=== PATIENT | female | born 1945 | race Caucasian/White ===

== ENCOUNTER 2017-06-02 14:14 | Emergency (ER) | payer OTHER ==
[2017-06-02 14:25] VITALS: BMI 27.1
[2017-06-02] MEDS ORDERED: ONDANSETRON 4 MG/2 ML VIAL IVPUSH ONE (16:11)
[2017-06-02] MEDS ORDERED: SODIUM CHLORIDE 0.9% 1000 ML INFUS.BAG IV ONE (16:12)
[2017-06-02] MEDS ORDERED: morphine CARPU-JECT 4 MG/1 ML DISP.SYRIN IVPUSH ONE (16:12)
[2017-06-02] MEDS ORDERED: ONDANSETRON 4 MG/2 ML VIAL ONE (16:29)
[2017-06-02] MEDS ORDERED: morphine CARPU-JECT 2 MG/1 ML DISP.SYRIN ONE (16:29)
[2017-06-02 16:32] LABS: BASOPHIL 0.7 % (0-2.0); MCHC 34.1 g/dl (32.0-36.0); MEAN CELL VOLUME 82.2 fl (80-96); NEUTROPHILS 66.7 % (42.8-82.8); PLATELET COUNT 224 K/MM3 (134-434); RDW 13.6 % (11.6-15.6); WHITE BLOOD COUNT 9.7 K/mm3 (4.0-10.0)
--- NOTE | 2017-06-02 16:33 | PDOC ---
History of Present Illness - General History Source: Patient Exam Limitations: No Limitations <Yesenia Chakraborty - Last Filed: 06/02/17 16:28> - General History Source: Patient, Family (Son) Exam Limitations: No Limitations - History of Present Illness Initial Comments: 06/02/17 16:34 The patient is a 72 year old female, with a significant past medical history of DM, GERD, Pancreatitis, HTN, HLD, Asthma who presents to the emergency department for epigastric abdominal pain. Patient states her pain is associated with nausea and vomiting. Patient report multiple episodes of vomiting ( nonbilious, nonbloody) this afternoon. Patient also reports L arm tingling but no numbness or weakness. Patient states her pain is similar when she had her cholecystectomy. She denies chest pain, headache or dizziness. She denies fever, chills, diarrhea or constipation. She denies dysuria, frequency, urgency or hematuria. Allergies: NKA Past surgical history: Cholecystectomy, Hysterectomy Social history: None PCP: Dr. Arciniega <Nida Pickering - Last Filed: 06/02/17 16:36> - General Chief Complaint: Pain Stated Complaint: PAIN, LT ARM, ABD Past History - Past Medical History Anemia: No Asthma: No Cancer: No Cardiac Disorders: No CVA: No COPD: No CHF: No Dementia: No Diabetes: Yes GI Disorders: Yes (ACID REFLUX,PANCREATITIS) Disorders: Yes (STRESS INCONTINENCE) HTN: Yes Hypercholesterolemia: Yes Liver Disease: No Seizures: No Thyroid Disease: No - Surgical History Abdominal Surgery: No Appendectomy: (') Cardiac Surgery: No Cholecystectomy: Yes ('99) Lung Surgery: No Neurologic Surgery: No Orthopedic Surgery: No - Psycho/Social/Smoking Cessation Hx Suicidal Ideation: No Smoking History: Never smoked Information on smoking cessation initiated: No Hx Alcohol Use: No Drug/Substance Use Hx: No Hx Substance Use Treatment: No <Yesenia Chakraborty - Last Filed: 06/02/17 16:28> <Nida Pickering - Last Filed: 06/02/17 16:36> - Past Medical History Allergies/Adverse Reactions: Allergies Allergy/AdvReac Type Severity Reaction Status Date / Time No Known Allergies Allergy Verified 06/02/17 14:25 Home Medications: Ambulatory Orders AmLODIPine 10/BENAZEPRIL 20 1 PO DAILY #0 10/17/11 Aspirin [Aspirin EC] 1 mg PO DAILY #0 tablet. 10/17/11 Calcium 500 PO DAILY #0 10/17/11 Humolog 5 SQ PRN #0 10/17/11 Hydrocodone Bit/Acetaminophen [Vicodin Es 7.5-750 mg Tablet] 1 each PO Q4HWA # 10 tablet 10/17/11 Insulin Glargine,Hum.rec.anlog [Lantus] 40 unit SQ DAILY #0 ml 10/17/11 Losartan Potassium [Cozaar] 100 mg PO DAILY #0 tablet 10/17/11 Metformin HCl [Glucophage] 1,000 mg PO BID #0 tablet 10/17/11 Multivitamin [Fruity Chews] 1 each PO DAILY #0 tab.chew 10/17/11 Omeprazole [Prilosec] 1 mg PO DAILY #0 capsule. 10/17/11 Vitamin D3 1 PO #0 10/17/11 Acetaminophen [Tylenol] 650 mg PO Q4H PRN #20 tablet 09/06/16 Mag Hydrox/Al Hydrox/Simeth [Mylanta Suspension -] 30 ml PO Q6H PRN #1 bottle Ranitidine HCl [Zantac] 150 mg PO BID PRN #20 tablet 09/06/16 Review of Systems - Review of Systems Able to Perform ROS?: Yes Comments:: 06/02/17 16:34 GENERAL/CONSTITUTIONAL: No fever or chills. No weakness. HEAD, EYES, EARS, NOSE AND THROAT: No change in vision. No ear pain or discharge. No sore throat. GASTROINTESTINAL: + nausea, vomiting. No diarrhea or constipation. GENITOURINARY: No dysuria, frequency, or change in urination. CARDIOVASCULAR: No chest pain or shortness of breath. RESPIRATORY: No cough, wheezing, or hemoptysis. MUSCULOSKELETAL: No joint or muscle swelling or pain. No neck or back pain. SKIN: No rash NEUROLOGIC: No headache, vertigo, loss of consciousness, or change in strength/ sensation. ENDOCRINE: No increased thirst. No abnormal weight change. HEMATOLOGIC/LYMPHATIC: No anemia, easy bleeding, or history of blood clots. ALLERGIC/IMMUNOLOGIC: No hives or skin allergy. <Nida Pickering - Last Filed: 06/02/17 16:36> *Physical Exam - Vital Signs Last Vital Signs Temp Pulse Resp BP Pulse Ox 97.5 F L 79 18 145/103 100 06/02/17 14:18 06/02/17 14:18 06/02/17 14:18 06/02/17 14:18 06/02/17 14:18 <Yesenia Chakraborty - Last Filed: 06/02/17 16:28> - Vital Signs Last Vital Signs Temp Pulse Resp BP Pulse Ox 97.5 F L 79 18 145/103 100 06/02/17 14:18 06/02/17 14:18 06/02/17 14:18 06/02/17 14:18 06/02/17 14:18 - Physical Exam Comments: 06/02/17 16:34 GENERAL: Awake, alert, and fully oriented, in no acute distress HEAD: No signs of trauma EYES: PERRLA, EOMI, sclera anicteric, conjunctiva clear ENT: Auricles normal inspection, nares patent, Moist mucosa NECK: Normal ROM, supple, no lymphadenopathy, JVD, or masses LUNGS: Breath sounds equal, clear to auscultation bilaterally. No wheezes, and no crackles HEART: Regular rate and rhythm, normal S1 and S2, no murmurs, rubs or gallops ABDOMEN: +epigastric tenderness, no rebound, no guarding. Soft, nontender, normoactive bowel sounds. No masses EXTREMITIES: Normal range of motion, no edema. No clubbing or cyanosis. No cords, erythema, or tenderness NEUROLOGICAL: Normal speech SKIN: Warm, Dry, normal turgor, no rashes or lesions noted. <Nida Pickering - Last Filed: 06/02/17 16:36> ED Treatment Course - RADIOLOGY Radiology Studies Ordered: Category Date Time Status ABDOMEN & PELVIS CT W/O CONTR [CT] Stat CT Scan 06/02/17 16:11 Ordered <Yesenia Chakraborty - Last Filed: 06/02/17 16:28> - LABORATORY CBC & Chemistry Diagram: 06/02/17 16:10 06/02/17 16:10 <Nida Pickering - Last Filed: 06/02/17 16:36> Medical Decision Making - Medical Decision Making 06/02/17 16:28 72 yo F with h/o cholecystecomy 99, with recently cbd stone x 2 in last year, here wtih c/o epigastric pain na/v x one. started early am. no f/c no urinary sxs. no cough no chest pain. does have left arm tingling. no change to stool . no urinar complaints. pain epigastric no radiation. no mod factors. feels similar to prior stones. on exam awake alert lungs clear bilat, heart rrr no mrg. abd soft mild epigastric ttp. no rebound no guarding. plan ct a/p labs will d/w dr marshall and dr. chandler. <Yesenia Chakraborty - Last Filed: 06/02/17 16:28> *DC/Admit/Observation/Transfer <Yesenia Chakraborty - Last Filed: 06/02/17 16:28> - Attestations Scribe Attestion: 06/02/17 16:34 Documentation prepared by Nida Pickering, acting as medical intern for Yesenia Chakraborty MD <Nida Pickering - Last Filed: 06/02/17 16:36> - Referrals Referrals: Prosper Arciniega MD [Primary Care Provider] -
[2017-06-02 18:18] LABS: ALBUMIN 3.2 g/dl (3.4-5.0); ALK PHOS 81 U/L (45-117); ANION GAP 11 (8-16); BILIRUBIN,TOTAL 0.3 mg/dL (0.2-1.0); CALCIUM 9.1 mg/dL (8.5-10.1); CO2 26 mmol/L (21-32); GLUCOSE,RANDOM 261 mg/dL (74-106); SGOT/AST 15 U/L (15-37); SGPT/ALT 23 U/L (12-78); TOT PROT 6.9 g/dl (6.4-8.2)
[2017-06-02 18:31] VITALS: BP 171/73; PULSE 72; TEMP 98.5
[2017-06-02 18:57] LABS: PH,URINE 6.5 (5.0-8.0); URINE APPEARANCE CLEAR; URINE BILIRUBIN NEGATIVE (NEGATIVE); URINE BLOOD TRACE-LYSE (NEGATIVE); URINE COLOR LT. YELLOW; URINE GLUCOSE (UA) 1+ (NEGATIVE); URINE KETONE NEGATIVE (NEGATIVE); URINE NITRITE NEGATIVE (NEGATIVE); URINE UROBILINOGEN 0.2 mg/dL (0.2-1.0)
[2017-06-02 18:58] LABS: URINE PROTEIN 1+ (NEGATIVE)
[2017-06-02 19:14] LABS: URINE RBC <1 /hpf (0-3); URINE WBC <1 /hpf (3-5)
--- NOTE | 2017-06-02 21:22 | PDOC ---
*Physical Exam - Vital Signs Last Vital Signs Temp Pulse Resp BP Pulse Ox 98.5 F 72 18 171/73 98 06/02/17 18:30 06/02/17 18:30 06/02/17 18:30 06/02/17 18:30 06/02/17 18:30 ED Treatment Course - LABORATORY CBC & Chemistry Diagram: 06/02/17 16:10 06/02/17 16:10 - ADDITIONAL ORDERS Additional order review: Laboratory Results 06/02/17 06/02/17 17:40 16:10 Sodium 133 L Potassium 3.4 L Chloride 96 L Carbon Dioxide 26 Anion Gap 11 BUN 8 D Creatinine 1.0 Creat Clearance w eGFR 54.50 Random Glucose 261 H D Calcium 9.1 Total Bilirubin 0.3 D AST 15 ALT 23 D Alkaline Phosphatase 81 Total Protein 6.9 Albumin 3.2 L Lipase 279 Urine Color Lt. yellow Urine Appearance Clear Urine pH 6.5 Urine Protein 1+ H Urine Glucose (UA) 1+ H Urine Ketones Negative Urine Blood Trace-lyse Urine Nitrite Negative Urine Bilirubin Negative Urine Urobilinogen 0.2 Urine RBC <1 Urine WBC <1 Ur Epithelial Cells Rare 06/02/17 16:10 RBC 3.81 MCV 82.2 MCHC 34.1 RDW 13.6 MPV 9.0 Neutrophils % 66.7 D Lymphocytes % 18.0 D Monocytes % 9.6 Eosinophils % 5.0 H Basophils % 0.7 - Medications Given in the ED: ED Medications Discontinued Medications Generic Name Dose Route Start Last Admin Trade Name Freq PRN Reason Stop Dose Admin Morphine Sulfate 4 mg 06/02/17 16:12 06/02/17 16:37 Morphine Injection - IVPUSH 06/02/17 16:13 4 mg ONCE ONE Administration Ondansetron HCl 4 mg 06/02/17 16:11 06/02/17 16:37 Zofran Injection IVPUSH 06/02/17 16:12 4 mg ONCE ONE Administration Sodium Chloride 1,000 ml 06/02/17 16:12 06/02/17 16:37 Normal Saline - IV 06/02/17 16:13 1,000 ml ONCE ONE Administration Medical Decision Making - Medical Decision Making 06/02/17 21:20 -Patient's symptoms resolved. - CAT scan of the abdomen and pelvis did not show any acute pathology. CAT scan did show interval development of 1.3 cm subcapsular cysts on a hepatic lobe.HOWEVER no acute pathology noted -the common Bile duct slightly dilated 1 cm but there was no stone in the common bile duct The lab findings and the CAT scan results were discussed with her, Dr. Sullivan and he agreed that she was stable to be discharged home I will send Isabelle to her pharmacy *DC/Admit/Observation/Transfer Diagnosis at time of Disposition: Epigastric pain Nausea and vomiting Qualifiers: Vomiting type: unspecified Vomiting Intractability: non-intractable Qualified Code(s): R11.2 - Nausea with vomiting, unspecified - Discharge Dispostion Disposition: HOME Condition at time of disposition: Stable - Referrals Referrals: Prosper Arciniega MD [Primary Care Provider] - - Patient Instructions Printed Discharge Instructions: DI for Epigastric Pain, DI for Vomiting -- Adult Additional Instructions: Please follow-up with Dr. Sullivan Return for any worsening symptoms - Post Discharge Activity
== END 2017-06-02 21:42 | disposition home or self-care (01) ==
LOC: JER 14:14
PROC: 3E033NZ Introduction of Analgesics, Hypnotics, Sedatives into Peripheral Vein, Percutaneous Approach (ICD-10-PCS; principal; 2017-06-02)
PROC: 3E033GC Introduction of Other Therapeutic Substance into Peripheral Vein, Percutaneous Approach (ICD-10-PCS; 2017-06-02)
DX: R10.13 Epigastric pain (principal); R11.2 Nausea with vomiting, unspecified; I10 Essential (primary) hypertension; Z79.4 Long term (current) use of insulin; Z79.84 Long term (current) use of oral hypoglycemic drugs; K21.9 Gastro-esophageal reflux disease without esophagitis; J45.909 Unspecified asthma, uncomplicated; K86.1 Other chronic pancreatitis
CPT/HCPCS: 36415; 74176-TC; 80053; 81003; 81015; 83690; 85025; 96374; 96375; 99284-25

== ENCOUNTER 2018-02-04 06:21 | Day surgery (SDC) | payer OTHER ==
[2018-02-02 16:57] VITALS: BMI 28.9
[~2018-02-04 06:21] MED LIST: ACETAMINOPHEN 325 MG TABLET (FP) PO PRN; EPINEPHrine/PF 1 MG/1 ML (1:1,000) AMPULE IVPUSH ONE; LIDOCAINE HCL 1% PRESERVATIVE FREE - 30ML VIAL IO ONE; TETRACAINE 0.5% OPHTH SOLN 2 ML BOTTLE TP ONE
[2018-02-04] MEDS ORDERED: TROPICAMIDE 1% OPHTH SOLN 15 ML BOTTLE ONE (06:30)
[2018-02-04] MEDS ORDERED: PHENYLEPHRINE 2.5% OPHTH SOLN 15 ML BOTTLE ONE (06:30)
[2018-02-04] MEDS ORDERED: CIPROFLOXACIN 0.3% EYE DROPS 5 ML BOTTLE ONE (06:30)
[2018-02-04] MEDS ORDERED: CYCLOPENTOLATE HCL 1% OPHTH SOLN 2 ML BOTTLE ONE (06:30)
[2018-02-04] MEDS ORDERED: FLURBIPROFEN 0.03% OPHTH SOLN 2.5 ML BOTTLE ONE (06:30)
[2018-02-04] MEDS: CYCLOPENTOLATE HCL 1% OPHTH SOLN 2 ML BOTTLE OP SCH ×2 (06:45→06:50)
[2018-02-04] MEDS: TROPICAMIDE 1% OPHTH SOLN 15 ML BOTTLE OP SCH ×2 (06:45→06:49)
[2018-02-04] MEDS: CIPROFLOXACIN HCL 0.3% OPHTH 2.5ML BOTTLE OP SCH ×2 (06:45→06:51)
[2018-02-04] MEDS: PHENYLEPHRINE 2.5% OPHTH SOLN 15 ML BOTTLE OP SCH ×2 (06:45→06:50)
[2018-02-04] MEDS: FLURBIPROFEN 0.03% OPHTH SOLN 2.5 ML BOTTLE OP SCH ×2 (06:45→06:50)
[2018-02-04 07:00] VITALS: TEMP 97.5
[2018-02-04] MEDS ORDERED: CHONDROITIN SU A/HYALUR SOD 1 KIT ONE (07:05)
[2018-02-04] MEDS ORDERED: TETRACAINE 0.5% OPHTH SOLN 2 ML BOTTLE ONE (07:15)
[2018-02-04] MEDS ORDERED: VANCOMYCIN 500 MG VIAL (RESTRICTED TO ID ONLY) ONE (07:15)
[2018-02-04] MEDS ORDERED: EPINEPHrine/PF 1 MG/1 ML (1:1,000) AMPULE ONE (07:15)
[2018-02-04] MEDS ORDERED: WATER FOR INJ,STERILE 10 ML ONE (07:15)
[2018-02-04] MEDS ORDERED: POVIDONE-IODINE 5% OPHTHALMIC PREP 30 ML SOLUTION ONE (07:15)
[2018-02-04] MEDS ORDERED: BSS (NA/CA/MG/K) BALANCED SALT SOLUTION OPHTH SOLN 15 ML BOTTLE ONE (07:15)
[2018-02-04] MEDS ORDERED: TRYPAN BLUE 0.5 ML DISP.SYRIN ONE (07:19)
[2018-02-04] MEDS ORDERED: LIDOCAINE HCL/PF 1% SDV 5ML VIAL ONE (07:19)
[2018-02-04] MEDS ORDERED: MIDAZOLAM HCL 2 MG/2 ML SINGLE DOSE VIAL ONE (07:56)
[2018-02-04] MEDS ORDERED: TETRACAINE 0.5% OPHTH SOLN 2 ML BOTTLE TP ONE (08:02)
[2018-02-04] MEDS ORDERED: LIDOCAINE HCL 1% PRESERVATIVE FREE - 30ML VIAL IO ONE (08:17)
[2018-02-04] MEDS ORDERED: EPINEPHrine/PF 1 MG/1 ML (1:1,000) AMPULE IVPUSH ONE (08:22)
[2018-02-04 09:10] VITALS: PULSE 70
--- NOTE | 2018-02-04 09:26 | SPEC ---
DATE OF OPERATION: 02/04/2018 PREOPERATIVE DIAGNOSIS: Cataract, right eye. POSTOPERATIVE DIAGNOSIS: Cataract, right eye. PROCEDURE: Phacoemulsification of right cataract with posterior chamber intraocular lens implantation. Lens used [id number], 22.5 diopter power, serial No. [id number]. SURGEON: Krishna Hardin M.D. ANESTHESIA: Topical MAC. COMPLICATIONS: None. DESCRIPTION OF PROCEDURE: The patient was brought to the operating room and correctly identified along with the operative site and the correct intraocular lens valverde. The patient was then prepped and draped in the usual sterile fashion including 5% Betadine solution in the conjunctival sac and an eyelid drape. An eyelid speculum was then placed in the eye. A paracentesis port was created and approximately 0.5 mL of preservative free Lidocaine was then injected into the eye. Viscoelastic was then injected to inflate the anterior chamber. A temporal clear corneal wound was created. A continuous circular capsulorrhexis was performed. The nucleus was then hydrodissected with BSS and removed with phacoemulsification. The remaining cortical material was irrigated and aspirated. Viscoelastic was injected to inflate the capsular bag and the intraocular lens was then implanted into the capsular bag. The remaining Viscoelastic was irrigated and aspirated from the eye. The IOL was noted to be well centered and completely covered by the anterior capsulorrhexis. Topical vancomycin was placed and the eye patched and shielded. All wounds were tested and found to be watertight. No suture was placed. The eye was then shielded. The patient was then discharged from the operating room in stable condition. KRISHNA HARDIN M.D. [id number]
[2018-02-04 09:46] VITALS: BP 130/65
== END 2018-02-04 09:30 | disposition home or self-care (01) ==
LOC: JASU-SURG 06:21
PROVIDERS: ATTEND Ophthalmology
PROC: 08RJ3JZ Replacement of Right Lens with Synthetic Substitute, Percutaneous Approach (ICD-10-PCS; principal; 2018-02-04 08:00)
DX: H26.9 Unspecified cataract (principal); I10 Essential (primary) hypertension; E11.9 Type 2 diabetes mellitus without complications; K21.9 Gastro-esophageal reflux disease without esophagitis; J45.909 Unspecified asthma, uncomplicated; Z79.84 Long term (current) use of oral hypoglycemic drugs
CPT/HCPCS: 82962

== ENCOUNTER 2018-02-18 06:04 | Day surgery (SDC) | payer OTHER ==
[2018-02-13 09:26] VITALS: BMI 28.9
[~2018-02-18 06:04] MED LIST changes: +CHONDROITIN SU A/HYALUR SOD 1 KIT IO ONE; +EPINEPHrine/PF 1 MG/1 ML (1:1,000) AMPULE IV ONE; -EPINEPHrine/PF 1 MG/1 ML (1:1,000) AMPULE IVPUSH ONE
[2018-02-18] MEDS ORDERED: CYCLOPENTOLATE HCL 1% OPHTH SOLN 2 ML BOTTLE ONE (06:12)
[2018-02-18] MEDS ORDERED: FLURBIPROFEN 0.03% OPHTH SOLN 2.5 ML BOTTLE ONE (06:13)
[2018-02-18] MEDS ORDERED: CIPROFLOXACIN 0.3% EYE DROPS 5 ML BOTTLE ONE (06:13)
[2018-02-18] MEDS ORDERED: PHENYLEPHRINE 2.5% OPHTH SOLN 15 ML BOTTLE ONE (06:13)
[2018-02-18] MEDS ORDERED: TROPICAMIDE 1% OPHTH SOLN 15 ML BOTTLE ONE (06:13)
[2018-02-18 06:31] VITALS: TEMP 97.8
[2018-02-18] MEDS: FLURBIPROFEN 0.03% OPHTH SOLN 2.5 ML BOTTLE OP SCH ×3 (06:55→07:13)
[2018-02-18] MEDS: CYCLOPENTOLATE HCL 1% OPHTH SOLN 2 ML BOTTLE OP SCH ×3 (06:55→07:13)
[2018-02-18] MEDS: PHENYLEPHRINE 2.5% OPHTH SOLN 15 ML BOTTLE OP SCH ×3 (06:55→07:13)
[2018-02-18] MEDS: TROPICAMIDE 1% OPHTH SOLN 15 ML BOTTLE OP SCH ×3 (06:55→07:13)
[2018-02-18] MEDS: CIPROFLOXACIN HCL 0.3% OPHTH 2.5ML BOTTLE OP SCH ×3 (06:55→07:13)
[2018-02-18] MEDS ORDERED: CHONDROITIN SU A/HYALUR SOD 1 KIT ONE (07:03)
[2018-02-18] MEDS ORDERED: LIDOCAINE HCL/PF 1% SDV 5ML VIAL ONE (07:19)
[2018-02-18] MEDS ORDERED: BSS (NA/CA/MG/K) BALANCED SALT SOLUTION OPHTH SOLN 15 ML BOTTLE ONE (07:19)
[2018-02-18] MEDS ORDERED: EPINEPHrine/PF 1 MG/1 ML (1:1,000) AMPULE ONE (07:19)
[2018-02-18] MEDS ORDERED: VANCOMYCIN 500 MG VIAL (RESTRICTED TO ID ONLY) ONE (07:19)
[2018-02-18] MEDS ORDERED: TETRACAINE 0.5% OPHTH SOLN 2 ML BOTTLE ONE (07:19)
[2018-02-18] MEDS ORDERED: WATER FOR INJ,STERILE 10 ML ONE (07:20)
[2018-02-18] MEDS ORDERED: POVIDONE-IODINE 5% OPHTHALMIC PREP 30 ML SOLUTION ONE (07:20)
[2018-02-18] MEDS ORDERED: MIDAZOLAM HCL 2 MG/2 ML SINGLE DOSE VIAL ONE (07:41)
[2018-02-18] MEDS ORDERED: KETAMINE HCL 200 MG/20 ML VIAL ONE (07:41)
[2018-02-18] MEDS ORDERED: TETRACAINE 0.5% OPHTH SOLN 2 ML BOTTLE TP ONE (07:55)
[2018-02-18] MEDS ORDERED: CHONDROITIN SU A/HYALUR SOD 1 KIT IO ONE (08:10)
[2018-02-18] MEDS ORDERED: LIDOCAINE HCL 1% PRESERVATIVE FREE - 30ML VIAL IO ONE (08:10)
[2018-02-18] MEDS ORDERED: EPINEPHrine/PF 1 MG/1 ML (1:1,000) AMPULE IV ONE (08:15)
--- NOTE | 2018-02-18 08:44 | SPEC ---
DATE OF SURGERY: 02/18/2018 OPERATION: Phacoemulsification with posterior chamber intraocular lens implantation, left eye. Lens used [id number], 23.0 Diopter power, Serial No. [id number]. PREOPERATIVE DIAGNOSIS: Cataract, left eye. POSTOPERATIVE DIAGNOSIS: Cataract, left eye. SURGEON: Krishna Hardin M.D. ANESTHESIA: Topical MAC. COMPLICATIONS: None. PROCEDURE: The patient was brought to the operating room and correctly identified along with the operative site and the correct intraocular lens valverde. The patient was then prepped and draped in the usual sterile fashion including 5% Betadine solution in the conjunctival sac and an eyelid drape. An eyelid speculum was then placed in the eye. A paracentesis port was created and approximately 0.5 mL of preservative free Lidocaine was then injected into the eye. Viscoelastic was then injected to inflate the anterior chamber. A temporal clear corneal wound was created. A continuous circular capsulorrhexis was performed. The nucleus was then hydrodissected with BSS and removed with phacoemulsification. The remaining cortical material was irrigated and aspirated. Viscoelastic was injected to inflate the capsular bag and the intraocular lens was then implanted into the capsular bag. The remaining Viscoelastic was irrigated and aspirated from the eye. The IOL was noted to be well centered and completely covered by the anterior capsulorrhexis. Topical vancomycin was placed and the eye patched and shielded. All wounds were tested and found to be watertight. No suture was placed. The eye was then shielded. The patient was then discharged from the operating room in stable condition. KRISHNA HARDIN M.D. [id number]
[2018-02-18 09:49] VITALS: BP 144/64; PULSE 72
[2018-02-18] MEDS ORDERED: ONDANSETRON 4 MG/2 ML VIAL IVPUSH PRN (15:46)
[2018-02-18] MEDS ORDERED: ACETAMINOPHEN 325 MG TABLET (FP) PO PRN (15:46)
== END 2018-02-18 09:30 | disposition home or self-care (01) ==
LOC: JASU-SURG 06:04
PROVIDERS: ATTEND Ophthalmology
PROC: 08RK3JZ Replacement of Left Lens with Synthetic Substitute, Percutaneous Approach (ICD-10-PCS; principal; 2018-02-18 08:00)
DX: H26.9 Unspecified cataract (principal)
CPT/HCPCS: 82962